=== PATIENT | female | born 1980 | race Caucasian/White ===

== ENCOUNTER 2019-03-27 08:31 | Outpatient (REF) | payer BC, SELFPAY ==
--- NOTE | 2019-03-27 08:00 | PAPFT_PTH ---
PATIENT: Kath Macias LOC: [facility] U#:[id number] AGE/SX: 39/F ROOM: RE03/27/[address]: Mimi Hernandez : 1980 BED: DIS: 03/27/2019 SPEC #: [id number] RECD: 03/27/19 13:00 STATUS: EVY REMelvi #: [id number] VINCE: 03/27/19 08:[address]: Mimi Hernandez DEPT: [facility] Cytology RECD BY: Shannon Lora Tissues: 1 - CX/ENDOCX FOR PAP SMEARS Procedures: PAP THIN PREP/[facility] Screening HPV DNA PROBE Comments: [id number]
[2019-03-27 12:39] LABS: HGB 11.5 g/dL (12.0-15.5); Mean Corp. HGB Concentration 30.3 g/dL (32.0-36.0); Mean Corpuscular Volume 79.3 fL (80-95); Mean Platelet Volume 9.9 fL (8.0-11.0); Platelet Count 440 x1000/uL (130-400); RBC 4.79 m/cumm (4.00-5.20); RBC Distribution Width 15.7 % (11.7-14.6); White Blood Cell Count 4.31 k/cumm (4.4-10.8)
[2019-03-27 13:15] LABS: Calculated LDL 159 mg/dL; Cholesterol 212 mg/dL (50-200); Ferritin 8 ng/mL (8-388); HDL Cholesterol 38 mg/dL (40-60); Triglyceride 78 mg/dL (30-150)
[2019-03-27 13:40] LABS: Hemoglobin A1C 5.7 % (4.5-6.2)
== END 2019-03-27 08:51 ==
LOC: NCHCN 08:31
PROVIDERS: PCP Family Medicine; Visit Provider Family Medicine
DX: R73.01 Impaired fasting glucose (principal); N92.0 Excessive and frequent menstruation with regular cycle; E66.9 Obesity, unspecified; Z00.00 Encounter for general adult medical examination without abnormal findings; Z12.4 Encounter for screening for malignant neoplasm of cervix; Z11.51 Encounter for screening for human papillomavirus (HPV)
CPT/HCPCS: 80061; 85027; 88142; 82728; 83036; 87624

== ENCOUNTER 2023-01-04 21:28 | Outpatient (REF) | payer BC, SELFPAY ==
[2023-01-04 18:53] LABS: Abs Immature Grans 0.01 10^3/uL (0.0-0.06); Absolute Basophil Count 0.06 10^3/uL (0.0-0.2); Absolute Eosinophil Count 0.15 10^3/uL (0.0-0.7); Absolute Lymphocyte Count 1.99 10^3/uL (1.2-3.4); Absolute Monocyte Count 0.43 10^3/uL (0.1-0.8); Absolute Neutrophil Count 3.24 10^3/uL (1.2-6.7); Eosinophils % 2.6; HGB 11.3 g/dL (11.2-15.7); Immature Grans % 0.2; Lymphocytes % 33.8; MCH 22.2 pg (27.0-33.0); MCHC 29.7 % (32.0-36.0); MCV 75 fL (80-95); MPV 9.8 fL (8.0-11.0); Monocytes % 7.3; Neutrophils % 55.1; Platelet Count 500 10^3/uL (130-400); RBC 5.08 10^6/uL (3.93-5.22); RDW 15.9 % (11.7-14.6); RDW-SD 42.9 fL; WBC 5.88 10^3/uL (4.4-10.8)
[2023-01-04 19:20] LABS: ALT 16 U/L (14-59); AST 18 U/L (15-37); Albumin 3.8 g/dL (3.4-5.0); Alkaline Phosphatase 65 U/L (46-116); Anion Gap 11.6 mmol/L (3-11); BUN 19 mg/dL (7-18); Bilirubin, Total 0.3 mg/dL (0.2-1.0); CO2 22.4 mmol/L (21.0-32.0); CREATININE 0.8 mg/dL (0.55-1.02); Calcium 8.9 mg/dL (8.5-10.1); Calculated LDL 179 mg/dL (<100); Chloride 104 mmol/L (98-107); Cholesterol 239 mg/dL (<200); Estimated GFR 93.12 (mL/min/1.73m2); Glucose 90 mg/dL (74-106); HDL Cholesterol 40 mg/dL (40-60); Potassium 4.3 mmol/L (3.5-5.1); Sodium 138 mmol/L (136-145); TSH (W/Ref FT4) 1.74 uIU/mL (0.36-3.74); Total Protein 8.3 g/dL (6.4-8.2); Triglyceride 101 mg/dL (<150)
[2023-01-04 20:14] LABS: Hemoglobin A1C 5.6 % (<5.7)
[2023-01-04 20:16] LABS: Diff Comment RBC Morph Reviewed
[2023-01-04 20:17] LABS: Microcytosis 1+
== END 2023-01-04 21:29 | disposition home or self-care (01) ==
LOC: NCHCN 21:28
PROVIDERS: PCP Family Medicine; Visit Provider Nurse Practitioner Family
DX: R63.5 Abnormal weight gain (principal); R73.03 Prediabetes; D64.9 Anemia, unspecified; Z83.49 Family history of other endocrine, nutritional and metabolic diseases; R79.89 Other specified abnormal findings of blood chemistry
CPT/HCPCS: 80053; 80061; 83036; 84443; 85025

== ENCOUNTER 2023-01-08 03:58 | Outpatient (CLI) | payer BC, SELFPAY ==
--- NOTE | 2023-01-08 | DI.MAMMO_ITS ---
Exam(s) MAMMO SCREENING EXAM: MAMMO SCREENING CLINICAL HISTORY: SCREENING, Z12.39 TECHNIQUE: Mammograms were interpreted according to the usual protocol including computer analysis w [employer] CAD system, tomosynthesis and C-view imaging. COMPARISON: No exams were available for comparison. Baseline examination. FINDINGS: The breasts are composed of scattered fibroglandular densities, Breast Density category B. No suspicious masses or suspicious microcalcifications are seen. No skin thickening or abnormal axillary lymph nodes are seen. IMPRESSION: BI-RADS Category 1, Negative mammogram Yearly screening mammography is recommended. Breast Density - Category B, scattered fibroglandular densities. A negative radiographic report should not delay biopsy if a dominant or clinically suspicious mass is present. Up to ten percent of cancers are not identified on mammography. A negative report may reinforce clinical impression. Adenosis and dense breasts may obscure an underlying neoplasm. False positive reports average 6 to 10%. Patient will receive a letter notifying them of these results.
== END 2023-01-08 04:18 ==
LOC: DI 04:00
PROVIDERS: PCP Family Medicine; Visit Provider Nurse Practitioner Family
DX: Z12.31 Encounter for screening mammogram for malignant neoplasm of breast (principal)
CPT/HCPCS: 77063; 77067

== ENCOUNTER 2024-09-09 15:20 | Outpatient (REF) | payer BC, SELFPAY ==
--- NOTE | 2024-09-09 11:15 | PAPFT_PTH ---
PATIENT: Kath Macias LOC: LOC[facility]IN [facility]#:[id number] AGE/SX: 44/F ROOM: RE09/09/[address]: Mimi Hernandez : 1980 BED: DIS: 09/09/2024 SPEC #: [id number] RECD: 09/10/24 12:40 STATUS: EVY REMelvi #: [id number] VINCE: 09/09/24 11:[address]: Mimi Hernandez DEPT: [facility] Cytology RECD BY: Shannon Lora Tissues: 1 - CX/ENDOCX FOR PAP SMEARS Procedures: PAP THIN PREP/[facility] Screening HPV DNA PROBE Comments: [id number] (HPV 16 & 18/45)
[2024-09-09 20:11] LABS: HCT 33.8 % (36.0-46.0); HGB 9.6 g/dL (11.2-15.7); MCH 20.9 pg (27.0-33.0); MCHC 28.4 % (32.0-36.0); MCV 74 fL (80-95); MPV 10.3 fL (8.0-11.0); Platelet Count 444 10^3/uL (130-400); RDW-SD 45.3 fL; WBC 5.41 10^3/uL (4.4-10.8)
[2024-09-09 20:30] LABS: ALT 15 U/L (14-59); AST 11 U/L (15-37); Albumin 3.6 g/dL (3.4-5.0); Alkaline Phosphatase 56 U/L (46-116); Anion Gap 10.3 mmol/L (3-11); BUN 13 mg/dL (7-18); Bilirubin, Total 0.2 mg/dL (0.2-1.0); CO2 25.7 mmol/L (21.0-32.0); CREATININE 0.7 mg/dL (0.55-1.02); Calcium 9.1 mg/dL (8.5-10.1); Chloride 106 mmol/L (98-107); Estimated GFR 107.95 (mL/min/1.73m2); Glucose 87 mg/dL (74-106); Potassium 4.4 mmol/L (3.5-5.1); Sodium 142 mmol/L (136-145); Total Protein 7.1 g/dL (6.4-8.2)
[2024-09-09 21:20] LABS: Hemoglobin A1C 5.7 % (<5.7)
[2024-09-10 12:38] LABS: Iron 14 ug/dL (50-170); Total Iron Binding Capacity 412 ug/dL (250-450)
[2024-09-10 13:01] LABS: Ferritin 4 ng/mL (8-252)
== END 2024-09-09 15:21 | disposition home or self-care (01) ==
LOC: NCHCN 15:20
PROVIDERS: PCP Family Medicine; Visit Provider Family Medicine
DX: D64.9 Anemia, unspecified (principal); Z11.51 Encounter for screening for human papillomavirus (HPV); Z01.419 Encounter for gynecological examination (general) (routine) without abnormal findings
CPT/HCPCS: 80053; 85027; 88142; 82728; 83036; 83540; 83550; 87624

== ENCOUNTER 2024-12-25 00:38 | Outpatient (CLI) | payer BC, SELFPAY ==
--- NOTE | 2024-12-25 | DI.MAMMO_ITS ---
Exam(s) MAMMO SCREENING EXAM: MAMMO SCREENING CLINICAL HISTORY: SCREENING,Z12.31. TECHNIQUE: Bilateral full field digital CC and MLO mammographic images were obtained with 3D tomosynthesis and utilizing computer aided detection (CAD). COMPARISON: Prior baseline mammogram of January 2023 was reviewed. FINDINGS: There has been no significant change in the appearance and distribution of the fibroglandular tissue. There are no CAD designations. There are no new spiculated masses nor malignant appearing microcalcification groups. There is no significant architectural distortion nor skin thickening-retraction. IMPRESSION: No radiographic evidence of malignancy. BI-RADS Category 1 - Negative Breast Density - Category B - There are scattered areas of fibroglandular density. Breast density Category C or D implies that the patient has dense breast tissue. Dense breast tissue can make it harder to find cancer on a mammogram. Dense breast tissue is also associated with an increased risk of breast cancer. This information about the result of the mammogram report was provided to the patient to raise their awareness. Use this report when you speak with the patient about their risks for breast cancer, which includes their family history. At that time, you may recommend additional screening tests (Ultrasound or MRI) as these tests may add significant information. A negative radiographic report should not delay biopsy if a dominant or clinically suspicious mass is present. Up to ten percent of cancers are not identified on mammography. A negative report may reinforce clinical impression. Adenosis and dense breasts may obscure an underlying neoplasm. False positive reports average 6 to 10%. Patient will receive a letter notifying them of these results.
== END 2024-12-25 00:58 ==
PROVIDERS: PCP Family Medicine; Visit Provider Family Medicine
DX: Z12.31 Encounter for screening mammogram for malignant neoplasm of breast (principal)
CPT/HCPCS: 77063; 77067

== ENCOUNTER 2025-01-06 03:59 | Outpatient (CLI) | payer BC, SELFPAY ==
[2025-01-06 08:19] LABS: HCT 39.6 % (36.0-46.0); HGB 12.5 g/dL (11.2-15.7); MCH 26.7 pg (27.0-33.0); MCHC 31.6 % (32.0-36.0); MCV 84 fL (80-95); MPV 9.6 fL (8.0-11.0); Platelet Count 323 10^3/uL (130-400); RBC 4.69 10^6/uL (3.93-5.22); RDW 14.7 % (11.7-14.6); RDW-SD 44.6 fL; WBC 4.68 10^3/uL (4.4-10.8)
[2025-01-06 09:07] LABS: Ferritin 18 ng/mL (8-252)
== END 2025-01-06 04:00 | disposition home or self-care (01) ==
LOC: LBO 03:59
PROVIDERS: PCP Family Medicine; Visit Provider Family Medicine
DX: D64.9 Anemia, unspecified (principal)
CPT/HCPCS: 36415; 85027; 82728